=== PATIENT | female | born 1985 | race Caucasian/White ===

== ENCOUNTER 2018-05-30 12:37 | Emergency (ER) | payer MEDICAID ==
[~2018-05-30] VITALS: Ht 172.7 cm; Wt 75.0 kg
[~2018-05-30 12:37] MED LIST: DOXYCYCLINE 10100 MG PO; FLAGYL500 MG PO; KLONOPIN 1MG1 MG PO; NORCO 325 MG-51 TAB PO; PRILOSEC 20MG20 MG PO; VIIBRYD20 MG PO; ZOFRAN 4MG T4 MG/TAB PO
[2018-05-30 12:39] VITALS: BP 147/92; PULSE 74; TEMP 98.1
[2018-05-30] MEDS ORDERED: WELLBUTRIN SR150 M1 PO (13:15)
[2018-05-30] MEDS ORDERED: DOXYCYCLINE 10100 MG PO (14:06)
[2018-05-30] MEDS ORDERED: NORCO 325 MG-51 TAB PO (14:06)
== END 2018-05-30 14:20 | disposition home or self-care (01) ==
LOC: COL.ER 12:37
DX: L01.00 Impetigo, unspecified (principal)

== ENCOUNTER → 2018-07-23 | Outpatient (REF) ==
[~2018-07-23] MED LIST changes: +WELLBUTRIN SR150 M1 PO
== END ==
LOC: WSPT 09:20
DX: Z02.1 Encounter for pre-employment examination (principal)

== ENCOUNTER → 2020-07-30 | Outpatient (CLI) | payer MEDICAID | LOC: COL.RAD 07-23 10:00 | DX: K59.00 Constipation, unspecified (principal); Z18.89 Other specified retained foreign body fragments; Z90.49 Acquired absence of other specified parts of digestive tract ==

== ENCOUNTER → 2020-08-03 | Outpatient (CLI) | payer MEDICAID | LOC: COL.RAD 07-27 10:00 | DX: K59.00 Constipation, unspecified (principal) ==

== ENCOUNTER → 2020-10-25 | Outpatient (CLI) | payer MEDICAID | LOC: COL.RAD 08:20 | DX: K21.9 Gastro-esophageal reflux disease without esophagitis (principal) ==